=== PATIENT | male | born 1990 | race Caucasian/White ===

== ENCOUNTER 2018-07-10 13:46 | Emergency (ER) | payer MEDICAID ==
[~2018-07-10] VITALS: Ht 177.8 cm; Wt 55.0 kg
[2018-07-10 13:46] VITALS: BP 91/50
[2018-07-10] MEDS ORDERED: CEPH500C5 PO (14:25)
[2018-07-10] MEDS ORDERED: ACET-3067 PO (14:26)
== END 2018-07-10 14:49 | disposition home or self-care (01) ==
LOC: ER 13:46
DX: S61.217A Laceration without foreign body of left little finger without damage to nail, initial encounter (principal); L08.9 Local infection of the skin and subcutaneous tissue, unspecified; F12.90 Cannabis use, unspecified, uncomplicated; Z79.2 Long term (current) use of antibiotics; Z79.899 Other long term (current) drug therapy; W22.8XXA Striking against or struck by other objects, initial encounter; Y93.89 Activity, other specified; Y92.89 Other specified places as the place of occurrence of the external cause; Y99.9 Unspecified external cause status
CPT/HCPCS: 10060; 99283

== ENCOUNTER 2018-07-15 21:11 | Emergency (ER) | payer MEDICAID ==
[~2018-07-15] VITALS: Ht 177.8 cm; Wt 70.0 kg
[~2018-07-15 21:11] MED LIST: ACET-3067 PO; CEPH500C5 PO
[2018-07-15 21:15] VITALS: BP 110/63
[2018-07-15] MEDS ORDERED: guaiFENesin/DM 10ml UD oral syrup PO ONE (23:50)
[2018-07-15] MEDS ORDERED: predniSONE 20 mg tablet PO ONE (23:50)
[2018-07-15] MEDS ORDERED: ROBCFL PO (23:53)
[2018-07-15] MEDS ORDERED: PRED20TA PO (23:53)
== END 2018-07-16 00:04 | disposition home or self-care (01) ==
LOC: ER 21:12
DX: J22 Unspecified acute lower respiratory infection (principal); F12.90 Cannabis use, unspecified, uncomplicated; Z79.2 Long term (current) use of antibiotics; Z79.899 Other long term (current) drug therapy
CPT/HCPCS: 71046; 99283; J7512

== ENCOUNTER 2018-09-18 16:38 | Emergency (ER) | payer MEDICAID ==
[~2018-09-18] VITALS: Ht 180.3 cm; Wt 65.0 kg
[2018-09-18 16:54] VITALS: BP 115/85
[2018-09-18] MEDS ORDERED: IBUP-1986 PO (18:59)
[2018-09-18] MEDS ORDERED: ketorolac tromethamine 15mg/ml inj. IM ONE (19:00)
== END 2018-09-18 19:23 | disposition home or self-care (01) ==
LOC: ER 16:38
DX: S60.511A Abrasion of right hand, initial encounter (principal); F17.200 Nicotine dependence, unspecified, uncomplicated; F12.90 Cannabis use, unspecified, uncomplicated; W22.01XA Walked into wall, initial encounter; Y93.89 Activity, other specified; Y92.89 Other specified places as the place of occurrence of the external cause; Y99.8 Other external cause status
CPT/HCPCS: 73130; 96372; 99283; J1885

== ENCOUNTER 2021-09-29 03:31 | Emergency (ER) | payer MEDICAID ==
[~2021-09-29] VITALS: Ht 177.8 cm; Wt 63.6 kg
[~2021-09-29 03:31] MED LIST changes: -ACET-3067 PO; -CEPH500C5 PO; +IBUP-1986 PO
[2021-09-29 04:13] VITALS: BP 125/80
[2021-09-30] MEDS ORDERED: BUPR1FIL3 SL ×2 (10:49→11:43)
== END 2021-09-29 04:17 ==
LOC: ER 03:31
DX: S19.9XXA Unspecified injury of neck, initial encounter (principal); F17.210 Nicotine dependence, cigarettes, uncomplicated; F12.10 Cannabis abuse, uncomplicated; V49.9XXA Car occupant (driver) (passenger) injured in unspecified traffic accident, initial encounter; Y93.89 Activity, other specified; Y92.89 Other specified places as the place of occurrence of the external cause; Y99.8 Other external cause status
CPT/HCPCS: 99283

== ENCOUNTER 2021-09-30 10:36 | Emergency (ER) | payer MEDICAID ==
[~2021-09-30] VITALS: Ht 177.8 cm; Wt 68.2 kg
[2021-09-30 10:44] VITALS: BP 114/71
[2021-09-30] MEDS ORDERED: BUPR1FIL3 SL ×2 (10:49→11:43)
== END 2021-09-30 10:58 | disposition home or self-care (01) ==
LOC: ER 10:36
DX: F11.90 Opioid use, unspecified, uncomplicated (principal); F12.90 Cannabis use, unspecified, uncomplicated; Z72.89 Other problems related to lifestyle; Z79.899 Other long term (current) drug therapy
CPT/HCPCS: 99283

== ENCOUNTER 2021-10-03 14:58 | Emergency (ER) | payer MEDICAID ==
[~2021-10-03] VITALS: Ht 177.8 cm; Wt 68.0 kg
[~2021-10-03 14:58] MED LIST changes: +BUPR1FIL3 SL
[2021-10-03 15:52] VITALS: BP 122/70
== END 2021-10-03 16:50 | disposition left against medical advice (07) ==
LOC: ER 14:58
DX: Z02.89 Encounter for other administrative examinations (principal); Z53.21 Procedure and treatment not carried out due to patient leaving prior to being seen by health care provider